=== PATIENT | female | born 1970 | race American Indian/Alaskan Native ===

== ENCOUNTER 2017-05-07 19:42 | Emergency (ER) | payer OTHER ==
[2017-05-07 19:43] VITALS: BMI 24.4
[2017-05-07 19:54] VITALS: O2SAT 100
--- NOTE | 2017-05-07 20:40 | ED PDOC ---
Arrival/HPI - General Chief Complaint: Headache Time Seen by Provider: 05/07/17 20:32 Historian: Patient - History of Present Illness Narrative History of Present Illness (Text): 05/07/17 20:32 This 47 yo female with pmh migraines, presents to this ED c/o posterior EMANUEL, and neck pain x 2 weeks. Patient stated her symptoms has been intermittent, however , symptoms worsen last 2-3 days. Patient noted she has had a negative CT of head, and a negative MRI of brain within last month. Denies fever, diplopia, dizziness, sob, cp, abdominal pain, urinary symptoms, vaginal discharge, vaginal bleeding, weakness, paresthesias, back pain, or abnormal gait. Time/Duration: Other (see hpi) Context: Home Past Medical History - Provider Review Nursing Documentation Reviewed: Yes - Infectious Disease Hx of Infectious Diseases: None - Tetanus Immunization Tetanus Immunization: Unknown - Past Medical History Past Medical History: No Previous - Cardiac Hx Cardiac Disorders: No - Pulmonary Hx Respiratory Disorders: Yes Hx Asthma: Yes - Neurological Hx Neurological Disorder: Yes Hx Migraine: Yes - HEENT Hx HEENT Disorder: No - Renal Hx Renal Disorder: No - Endocrine/Metabolic Hx Endocrine Disorders: No - Hematological/Oncological Hx Blood Disorders: No - Integumentary Hx Dermatological Disorder: No - Musculoskeletal/Rheumatological Hx Musculoskeletal Disorders: No - Gastrointestinal Hx Gastrointestinal Disorders: Yes Hx Gastroesophageal Reflux: Yes - Genitourinary/Gynecological Hx Genitourinary Disorders: No - Psychiatric Hx Psychophysiologic Disorder: No Hx Anxiety: Yes Hx Depression: No Hx Emotional Abuse: No Hx Physical Abuse: No Hx Substance Use: No - Past Surgical History Past Surgical History: No Previous - Surgical History Hx Section: Yes - Anesthesia Hx Anesthesia: Yes Hx Anesthesia Reactions: No - Suicidal Assessment Feels Threatened In Home Enviroment: No Family/Social History - Physician Review Nursing Documentation Reviewed: Yes Family/Social History: Other (non-contributory) Smoking Status: Never Smoked Hx Alcohol Use: No Hx Substance Use: No Hx Substance Use Treatment: No Allergies/Home Meds Allergies/Adverse Reactions: Allergies No Known Allergies Allergy (Verified 10/29/16 19:35) Home Medications: Home Meds Medication Instructions Recorded Confirmed Acetaminophen/Butalbital/Caf 1 tab PO PRN PRN 05/07/17 05/07/17 [Fioricet] Topiramate [Topamax] 50 mg PO PRN PRN 05/07/17 05/07/17 Review of Systems - Review of Systems Constitutional: Normal. absent: Fatigue, Weight Change, Fevers, Night Sweats Eyes: Normal ENT: Normal. absent: Sore Throat, Rhinorrhea Respiratory: Normal. absent: SOB, Cough, Sputum, Wheezing Cardiovascular: Normal. absent: Chest Pain, Palpitations, Edema Gastrointestinal: Normal. absent: Abdominal Pain, Nausea, Vomiting Genitourinary Female: Normal. absent: Dysuria, Frequency, Hematuria, Vaginal Bleeding, Vaginal Discharge Musculoskeletal: Neck Pain. absent: Arthralgias, Back Pain, Joint Swelling, Myalgias Skin: Normal. absent: Rash Neurological: Headache. absent: Dizziness, Focal Weakness, Gait Changes, Speech Changes, Facial Droop, Disequilibrium, Seizure Endocrine: Normal Hemo/Lymphatic: Normal Psychiatric: Normal Physical Exam Vital Signs Temp Pulse Resp BP Pulse Ox 05/07/17 19:53 97.5 F L 70 19 161/84 H 100 Temperature: Afebrile Blood Pressure: Normal Pulse: Regular Respiratory Rate: Normal Appearance: Positive for: Well-Appearing, Non-Toxic, Comfortable Pain Distress: None Mental Status: Positive for: Alert and Oriented X 3 - Systems Exam Head: Present: Atraumatic, Normocephalic Pupils: Present: PERRL Extroacular Muscles: Present: EOMI Conjunctiva: Present: Normal Mouth: Present: Moist Mucous Membranes Neck: Present: Normal Range of Motion Respiratory/Chest: Present: Clear to Auscultation, Good Air Exchange. No: Respiratory Distress, Accessory Muscle Use Cardiovascular: Present: Regular Rate and Rhythm, Normal S1, S2. No: Murmurs Abdomen: Present: Normal Bowel Sounds. No: Tenderness, Distention, Peritoneal Signs Back: Present: Normal Inspection Upper Extremity: Present: Normal Inspection, Normal ROM, NORMAL PULSES, Neurovascularly Intact, Capillary Refill < 2s. No: Cyanosis, Edema Lower Extremity: Present: Normal Inspection, NORMAL PULSES, Normal ROM, Neurovascularly Intact, Capillary Refill < 2 s. No: Edema, CALF TENDERNESS Neurological: Present: GCS=15, CN II-XII Intact, Speech Normal, Motor Func Grossly Intact, Normal Sensory Function, Normal Cerebellar Funct, Gait Normal, Memory Normal, Other (No neuro focal deficts. Normal gait.) Skin: Present: Warm, Dry, Normal Color. No: Rashes Psychiatric: Present: Alert, Oriented x 3, Normal Insight, Normal Concentration Medical Decision Making ED Course and Treatment: 05/07/17 20:40 Patient does not want to have Reglan, since last time she had a "bad ' side effect. 05/07/17 22:13 Re-evaluation. Patient feels better. Discussed results and plan with patient who expresses understanding. All questions answered and there is agreement with the plan to discharge home with instructions. Patient stable for discharge. Return if symptoms persist or worsen. Re-evaluation Time: 22:13 Reassessment Condition: Re-examined, Improved - Medication Orders Current Medication Orders: Discontinued Medications Diazepam (Valium) 5 mg PO ONCE ONE PRN Reason: Protocol Stop: 05/07/17 20:40 Last Admin: 05/07/17 20:57 Dose: Not Given Non-Admin Reason: Patient Refused Sodium Chloride (Sodium Chloride 0.9%) 1,000 mls @ 999 mls/hr IV .Q1H1M STA Stop: 05/07/17 21:37 Last Admin: 05/07/17 21:07 Dose: 999 mls/hr Ketorolac Tromethamine (Toradol) 15 mg IVP STAT STA Stop: 05/07/17 20:40 Last Admin: 05/07/17 21:11 Dose: 15 mg Ondansetron HCl (Zofran Inj) 4 mg IVP STAT STA Stop: 05/07/17 20:40 Last Admin: 05/07/17 21:11 Dose: 4 mg Disposition/Present on Arrival - Present on Arrival Any Indicators Present on Arrival: No History of DVT/PE: No History of Uncontrolled Diabetes: No Urinary Catheter: No History of Decub. Ulcer: No History Surgical Site Infection Following: None - Disposition Have Diagnosis and Disposition been Completed?: Yes Diagnosis: Headache Disposition: HOME/ ROUTINE Disposition Time: 22:14 Patient Plan: Discharge Condition: GOOD Discharge Instructions (ExitCare): General Headache (ED) Additional Instructions: Call private doctor for follow up visit in 1-2 days. You may need to start your home medication for headaches as instructed by your neurologist. Take medication as instructed with food. return to emergency if symptoms worsen. Prescriptions: Diazepam [Valium] 2 mg PO DAILY PRN #7 tablet PRN Reason: Muscle Spasm Famotidine [Pepcid] 40 mg PO DAILY #10 tablet Naproxen 500 mg PO BID PRN #14 tab PRN Reason: Pain, Severe (8-10) Referrals: Sari Davies MD [Primary Care Provider] - Follow up with primary Forms: [employer] (Nepali)
[2017-05-07] MEDS: Sodium Chloride 0.9% 1,000 ML IV STA (21:07)
[2017-05-07 22:41] VITALS: BP 134/94; PULSE 75; RESP 18; TEMP 98
== END 2017-05-07 23:05 | disposition home or self-care (01) ==
LOC: ED 19:42
DX: R51 Headache (principal)
CPT/HCPCS: 96361; 96374; 96375; 99285; J1885; J2405; J7040

== ENCOUNTER 2017-06-21 10:32 | Emergency (ER) | payer OTHER ==
[2017-06-21 10:48] VITALS: O2SAT 100
[2017-06-21 10:58] VITALS: BMI 24.3
--- NOTE | 2017-06-21 11:10 | ED PDOC ---
Arrival/HPI - General Historian: Patient <Vishal Gray - Last Filed: 06/21/17 13:50> - History of Present Illness Time/Duration: 4-6 hours Symptom Course: Resolved Quality: Aching Severity Level: 7 <Mekhi Means - Last Filed: 06/21/17 13:59> - General Chief Complaint: Headache Time Seen by Provider: 06/21/17 10:35 - History of Present Illness Narrative History of Present Illness (Text): 47 year female with no significant past medical history who has had 2 months of a headache who now presents to [facility] via EMS for blurred vision and dizziness. Her symptoms began when she woke up today at 7:00 am and resolved in 30-45 minutes. She denies any visual loss, motor or sensory loss, convulsions, or change or worsening of her typical headache. She states her headaches are posterior in nature, constant, characterized as aching, that generally start from the occiput and radiate to the posterior neck, and have been refractory to Topamax, though the dosage was recently increased. Important to note, she has recently started taking Flexeril 10 mg BID since last and has been experiencing menopausal symptoms, including, but not limited to hot flashes, difficulty sleeping, and dysphoria. She states her last period was in February and the one before that was in September of this year. She had an MRI in December that showed no abnormalities and has seen a neurologist in the past week. 06/21/17 11:16 (Mekhi Means) Past Medical History - Provider Review Nursing Documentation Reviewed: Yes - Infectious Disease Hx of Infectious Diseases: None - Tetanus Immunization Tetanus Immunization: Unknown - Reproductive Menopause: Yes (patient states in menopause lmp 03/2017) - Past Medical History Past Medical History: No Previous - Cardiac Hx Cardiac Disorders: No - Pulmonary Hx Respiratory Disorders: Yes Hx Asthma: Yes ("seasonal") - Neurological Hx Neurological Disorder: Yes Hx Migraine: Yes - HEENT Hx HEENT Disorder: No - Renal Hx Renal Disorder: No - Endocrine/Metabolic Hx Endocrine Disorders: No - Hematological/Oncological Hx Blood Disorders: No - Integumentary Hx Dermatological Disorder: No - Musculoskeletal/Rheumatological Hx Musculoskeletal Disorders: No - Gastrointestinal Hx Gastrointestinal Disorders: Yes Hx Gastroesophageal Reflux: Yes - Genitourinary/Gynecological Hx Genitourinary Disorders: No - Psychiatric Hx Psychophysiologic Disorder: Yes Hx Anxiety: Yes Hx Depression: No Hx Emotional Abuse: No Hx Physical Abuse: No Hx Substance Use: No - Past Surgical History Past Surgical History: No Previous - Surgical History Hx Section: Yes (2008) - Anesthesia Hx Anesthesia: Yes Hx Anesthesia Reactions: No - Suicidal Assessment Feels Threatened In Home Enviroment: No <Miguelangel,Mekhi - Last Filed: 06/21/17 13:59> Family/Social History - Physician Review Nursing Documentation Reviewed: Yes Family/Social History: No Known Family HX Smoking Status: Never Smoked Hx Alcohol Use: Yes Frequency of alcohol use: Socially Hx Substance Use: No Hx Substance Use Treatment: No <Mekhi Means - Last Filed: 06/21/17 13:59> Allergies/Home Meds <Vishal Gray - Last Filed: 06/21/17 13:50> <MiguelangelMekhi mckinnon - Last Filed: 06/21/17 13:59> Allergies/Adverse Reactions: Allergies No Known Allergies Allergy (Verified 10/29/16 19:35) Home Medications: Home Meds Medication Instructions Recorded Confirmed Topiramate [Topamax] 50 mg PO PRN PRN 05/07/17 06/21/17 Cyclobenzaprine [Flexeril] 10 mg PO BID 06/21/17 06/21/17 Review of Systems - Review of Systems Constitutional: Fatigue, Other (hot flashes). absent: Fevers Eyes: Vision Changes. absent: Photophobia, Eye Pain ENT: absent: Hearing Changes, Tinnitus, Sinus Congestion Respiratory: absent: SOB, Cough, Wheezing Cardiovascular: absent: Chest Pain, Palpitations Gastrointestinal: absent: Abdominal Pain, Nausea, Vomiting Musculoskeletal: Neck Pain Neurological: Headache, Dizziness, Disequilibrium. absent: Focal Weakness, Gait Changes Hemo/Lymphatic: absent: Easy Bleeding, Easy Bruising Psychiatric: absent: Anxiety, Depression <Mekhi Means - Last Filed: 06/21/17 13:59> Physical Exam Vital Signs Reviewed: Yes Temperature: Afebrile Blood Pressure: Hypertensive Pulse: Regular Respiratory Rate: Normal Appearance: Positive for: Non-Toxic, Comfortable Pain Distress: Mild Mental Status: Positive for: Alert and Oriented X 3 - Systems Exam Head: Present: Atraumatic, Normocephalic Pupils: Present: PERRL Extroacular Muscles: Present: EOMI Conjunctiva: Present: Normal Mouth: Present: Moist Mucous Membranes Pharnyx: Present: Normal. No: ERYTHEMA, EXUDATE Neck: Present: Normal Range of Motion Respiratory/Chest: Present: Clear to Auscultation, Good Air Exchange. No: Respiratory Distress Cardiovascular: Present: Regular Rate and Rhythm, Normal S1, S2 Abdomen: Present: Normal Bowel Sounds. No: Tenderness, Distention Back: Present: Normal Inspection Upper Extremity: Present: Normal Inspection. No: Cyanosis, Edema Lower Extremity: Present: Normal Inspection. No: Edema Neurological: Present: CN II-XII Intact, Speech Normal, Motor Func Grossly Intact, Normal Sensory Function, Normal Cerebellar Funct, Gait Normal, Other ( negative Romberg and negative Dionicio-Khan [place] maneuver) Skin: Present: Warm, Dry, Normal Color Psychiatric: Present: Alert, Oriented x 3, Depressed Mood <Mekhi Means - Last Filed: 06/21/17 13:59> Vital Signs Temp Pulse Resp BP Pulse Ox 06/21/17 13:48 88 17 137/80 100 06/21/17 13:00 85 18 138/71 100 06/21/17 11:18 98.9 F 06/21/17 10:39 99.1 F 92 H 18 143/75 100 06/21/17 10:32 99.1 F 95 H 17 141/75 100 Medical Decision Making - Lab Interpretations I have reviewed the lab results: Yes <Vishal Gray - Last Filed: 06/21/17 13:50> - EKG Interpretation Interpreted by ED Physician: Yes (NSR) Type: 12 lead EKG <Mekhi Means - Last Filed: 06/21/17 13:59> ED Course and Treatment: 06/21/17 13:53 In agreement with resident note, which includes further HPI details. Patient was seen and evaluated with resident, came up with plan and treatment together. 47 year old female presents complaining of headaches for the past two months associated with blurred vision and dizziness. (Vishal Gray) EKG shows normal sinus rhythm. 06/21/17 11:44 CT head without contrast shows no abnormalities. CBC shows WBC of 4.1. CMP and Coagulation panel non-revealing 06/21/17 12:48 Patient was alert, oriented, and exhibiting normal mentation and signed out AMA after being informed of the risks, including sudden , of leaving against medical advice. 06/21/17 13:43 (Mekhi Means) - Lab Interpretations Lab Results: 06/21/17 11:30 06/21/17 11:30 Lab Results 06/21/17 11:30: Sodium 143, Potassium 4.1, Chloride 109 H, Carbon Dioxide 23, Anion Gap 15, BUN 12, Creatinine 0.8, Est GFR ( Amer) > 60, Est GFR (Non- Af Amer) > 60, Random Glucose 98, Calcium 9.1, Total Bilirubin 0.6, AST 30, ALT 25, Alkaline Phosphatase 77, Total Protein 7.8, Albumin 4.5, Globulin 3.3, Albumin/Globulin Ratio 1.4 06/21/17 11:30: PT 11.4, INR 1.06, APTT 25.4 06/21/17 11:30: WBC 4.1 L D, RBC 4.09, Hgb 12.8, Hct 37.1, MCV 90.7, MCH 31.3, MCHC 34.5, RDW 12.5, Plt Count 233, MPV 10.8, Gran % 68.7 H, Lymph % (Auto) 24.5 , [place] % (Auto) 5.6, Eos % (Auto) 0.5 L, Baso % (Auto) 0.7, Gran # 2.80, Lymph # 1.0 L, [place] # 0.2, Eos # 0.0, Baso # 0.03 06/21/17 11:17: POC Glucose (mg/dL) 89 - RAD Interpretation Radiology Orders: 06/21/17 11:17 HEAD W/O CONTRAST [CT] Stat - Medication Orders Current Medication Orders: Discontinued Medications Diphenhydramine HCl (Benadryl) 25 mg IVP STAT STA Stop: 06/21/17 11:20 Last Admin: 06/21/17 12:53 Dose: Not Given Non-Admin Reason: Patient Refused Ketorolac Tromethamine (Toradol) 30 mg IVP STAT STA Stop: 06/21/17 12:02 Last Admin: 06/21/17 12:18 Dose: 30 mg MAR Pain Assessment Document 06/21/17 12:18 SF (Rec: 06/21/17 12:18 SF [id number]) Pain Reassessment Is this a pain reassessment? Yes Sleep Is patient sleeping during reassessment? No Presence of Pain Presence of Pain Yes IVP Administration Document 06/21/17 12:18 SF (Rec: 06/21/17 12:18 SF [id number]) Charges for Administration # of IVP Administrations 1 Re-Assess: SUZI Pain Assessment Document 06/21/17 13:18 SF (Rec: 06/21/17 13:45 SF [place] [id number]) Pain Reassessment Is this a pain reassessment? Yes Sleep Is patient sleeping during reassessment? No Presence of Pain Presence of Pain Yes Metoclopramide HCl (Reglan) 10 mg IVP STAT STA Stop: 06/21/17 11:20 Last Admin: 06/21/17 12:52 Dose: Not Given Non-Admin Reason: Patient Refused - Scribe Statement The provider has reviewed the documentation as recorded by the Scribe <Vishal Gray - Last Filed: 06/21/17 13:50> <Mekhi Means - Last Filed: 06/21/17 13:59> - Scribe Statement James Chapman All medical record entries made by the Scribe were at my direction and personally dictated by me. I have reviewed the chart and agree that the record accurately reflects my personal performance of the history, physical exam, medical decision making, and the department course for this patient. I have also personally directed, reviewed, and agree with the discharge instructions and disposition. (Vishal Gray) Disposition/Present on Arrival <Vishal Gray - Last Filed: 06/21/17 13:50> - Present on Arrival Any Indicators Present on Arrival: No History of DVT/PE: No History of Uncontrolled Diabetes: No Urinary Catheter: No History of Decub. Ulcer: No History Surgical Site Infection Following: None - Disposition Have Diagnosis and Disposition been Completed?: Yes Disposition Time: 13:47 Patient Plan: Other <Mekhi Means - Last Filed: 06/21/17 13:59> - Disposition Diagnosis: Headache Disposition: AGAINST MEDICAL ADVICE Patient Problems: Current Active Problems Problem Status Onset Headache Acute Condition: UNKNOWN Forms: [employer] (Turkish)
[2017-06-21 11:19] VITALS: TEMP 98.9
[2017-06-21] MEDS ORDERED: DiphenhydrAMINE 50 mg/ml Inj IVP STA (11:19)
[2017-06-21 12:08] LABS: BASO # 0.03 K/mm3 (0.0-2.0); BASO % 0.7 % (0.0-3.0); EOS % 0.5 % (1.5-5.0); GRAN # 2.8 (1.4-6.5); GRAN % 68.7 % (50.0-68.0); HEMATOCRIT 37.1 % (36.0-48.0); LYMPH % 24.5 % (22.0-35.0); MEAN CELL VOLUME 90.7 fl (80.0-105.0); MEAN CORPUSCULAR HEMOGLOBIN 31.3 pg (25.0-35.0); MEAN CORPUSCULAR HGB CONC 34.5 g/dl (31.0-37.0); MEAN PLATELET VOLUME 10.8 fl (7.0-11.0); MONO # 0.2 (0.1-0.6); MONO % 5.6 % (1.0-6.0); RED CELL DISTRIBUTION WIDTH 12.5 % (11.5-14.5); WHITE BLOOD COUNT 4.1 10^3/ul (4.5-11.0)
[2017-06-21 12:14] LABS: ALB/GLOB RATIO 1.4 (1.1-1.8); ALKALINE PHOSPHATASE 77 U/L (38-126); ALT/SGPT 25 U/L (7-56); AST/SGOT 30 U/L (14-36); BILIRUBIN,TOTAL 0.6 mg/dL (0.2-1.3); BLOOD UREA NITROGEN 12 mg/dL (7-21); CALCIUM 9.1 mg/dL (8.4-10.5); CARBON DIOXIDE 23 mmol/L (21-33); CHLORIDE 109 mmol/L (98-107); GFR AFRICAN-AMERICAN > 60; GLUCOSE,RANDOM 98 mg/dL (70-110); INR 1.06 (0.93-1.08); PARTIAL THROMBOPLASTIN TIME 25.4 Seconds (23.7-30.8); POTASSIUM 4.1 mmol/L (3.6-5.0); SODIUM 143 mmol/L (132-148); TOTAL PROTEIN 7.8 g/dL (5.8-8.3)
--- NOTE | 2017-06-21 12:20 | CT ---
PROCEDURE: CT HEAD WITHOUT CONTRAST. HISTORY: fernandez COMPARISON: Comparison made with CT scan brain 09/06/2016 TECHNIQUE: Axial computed tomography images were obtained through the head/brain without intravenous contrast. Radiation dose: Total exam DLP = 726.57 mGy-cm. This CT exam was performed using one or more of the following dose reduction techniques: Automated exposure control, adjustment of the mA and/or kV according to patient size, and/or use of iterative reconstruction technique. FINDINGS: HEMORRHAGE: No acute parenchymal, subarachnoid nor extra-axial hemorrhage. BRAIN: No evidence of large acute infarct. No obvious parenchymal nor extra-axial masses or collections seen on this noncontrast study. Mild age-appropriate volume loss. VENTRICLES: Unremarkable. No hydrocephalus. CALVARIUM: Unremarkable. PARANASAL SINUSES: Minor mucosal thickening seen within a few ethmoid air cells MASTOID AIR CELLS: Unremarkable as visualized. No inflammatory changes. OTHER FINDINGS: None. IMPRESSION: No acute intracranial hemorrhage.
[2017-06-21 13:48] VITALS: BP 137/80; PULSE 88; RESP 17
[2017-06-21 13:58] LABS: URINE BILIRUBIN NEGATIVE (NEGATIVE); URINE BLOOD TRACE-INTACT (NEGATIVE); URINE GLUCOSE (UA) NEGATIVE (NEGATIVE); URINE KETONE NEGATIVE (NEGATIVE); URINE LEUKOCYTE ESTERASE TRACE Leu/uL (NEGATIVE); URINE PROTEIN NEGATIVE mg/dL (<30 mg/dL); URINE UROBILINOGEN 0.2 E.U./dL (<1 E.U./dL)
[2017-06-21 14:01] LABS: URINE APPEARANCE CLEAR (CLEAR); URINE COLOR YELLOW (YELLOW)
[2017-06-21 14:04] LABS: URINE AMORPHOUS SEDIMENT FEW; URINE BACTERIA MANY (NEG)
--- NOTE | 2017-06-21 14:31 | CARD ---
APPROVED REPORT EKG Measurement Heart [id number] <Conclusion> Normal sinus rhythm Normal ECG
== END 2017-06-21 13:45 | disposition left against medical advice (07) ==
LOC: ED 10:32
DX: R51 Headache (principal)
CPT/HCPCS: 70450; 80053; 81001; 82948; 84703; 85025; 85610; 85730; 93005; 96374; 99285; J1885

== ENCOUNTER 2017-06-26 20:18 | Emergency (ER) | payer OTHER ==
[2017-06-26 20:18] VITALS: BMI 24.3
[2017-06-26 20:40] VITALS: PULSE 95; RESP 18; TEMP 98.5
--- NOTE | 2017-06-26 20:46 | ED PDOC ---
Arrival/HPI - General Chief Complaint: Shortness Of Breath Time Seen by Provider: 06/26/17 20:20 - History of Present Illness Narrative History of Present Illness (Text): 47 year old female with a past medical history of asthma (seasonal in nature) who presents with acute onset rhinorrhea, coryza, congestion, and shortness of breath following allergy testing today. She reports not having an albuterol inhaler at home and never being hospitalized for an asthma attack. She denies a productive cough, fever, chills, or chest pain. 06/26/17 20:39 Past Medical History - Provider Review Nursing Documentation Reviewed: Yes - Infectious Disease Hx of Infectious Diseases: None - Tetanus Immunization Tetanus Immunization: Unknown - Past Medical History Past Medical History: No Previous - Cardiac Hx Cardiac Disorders: No - Pulmonary Hx Respiratory Disorders: Yes Hx Asthma: Yes ("seasonal") - Neurological Hx Neurological Disorder: Yes Hx Migraine: Yes - HEENT Hx HEENT Disorder: No - Renal Hx Renal Disorder: No - Endocrine/Metabolic Hx Endocrine Disorders: No - Hematological/Oncological Hx Blood Disorders: No - Integumentary Hx Dermatological Disorder: No - Musculoskeletal/Rheumatological Hx Musculoskeletal Disorders: No - Gastrointestinal Hx Gastrointestinal Disorders: Yes Hx Gastroesophageal Reflux: Yes - Genitourinary/Gynecological Hx Genitourinary Disorders: No - Psychiatric Hx Psychophysiologic Disorder: Yes Hx Anxiety: Yes Hx Depression: No Hx Emotional Abuse: No Hx Physical Abuse: No Hx Substance Use: No - Past Surgical History Past Surgical History: No Previous - Surgical History Hx Section: Yes (2008) - Anesthesia Hx Anesthesia: Yes Hx Anesthesia Reactions: No Hx Malignant Hyperthermia: No - Suicidal Assessment Feels Threatened In Home Enviroment: No Family/Social History Family/Social History: No Known Family HX Smoking Status: Never Smoked Hx Alcohol Use: Yes Frequency of alcohol use: Socially Hx Substance Use: No Hx Substance Use Treatment: No Allergies/Home Meds Allergies/Adverse Reactions: Allergies No Known Allergies Allergy (Verified 10/29/16 19:35) Home Medications: Home Meds Medication Instructions Recorded Confirmed Topiramate [Topamax] 50 mg PO PRN PRN 05/07/17 06/21/17 Cyclobenzaprine [Flexeril] 10 mg PO BID 06/21/17 06/21/17 Review of Systems - Review of Systems Constitutional: absent: Fatigue, Weight Change, Fevers Eyes: absent: Vision Changes, Photophobia, Eye Pain ENT: Rhinorrhea, Sinus Congestion Respiratory: SOB, Cough (dry), Wheezing (mild). absent: Sputum Cardiovascular: absent: Chest Pain, Palpitations, Edema Gastrointestinal: Normal. absent: Nausea, Vomiting Genitourinary Female: Normal. absent: Dysuria, Frequency, Hematuria Musculoskeletal: Normal. absent: Arthralgias, Back Pain, Neck Pain Skin: absent: Rash, Pruritis, Skin Lesions Neurological: Normal. absent: Headache, Dizziness, Focal Weakness Endocrine: absent: Diaphoresis, Polyuria Hemo/Lymphatic: absent: Easy Bleeding, Easy Bruising Psychiatric: absent: Anxiety, Depression Physical Exam Vital Signs Temp Pulse Resp Pulse Ox 06/26/17 21:18 18 99 06/26/17 20:18 98.5 F 95 H 18 100 Temperature: Afebrile Blood Pressure: Normal Pulse: Regular Respiratory Rate: Normal Appearance: Positive for: Well-Appearing, Non-Toxic Pain Distress: None Mental Status: Positive for: Alert and Oriented X 3 - Systems Exam Head: Present: Atraumatic, Normocephalic Pupils: Present: PERRL Extroacular Muscles: Present: EOMI Conjunctiva: Present: Normal Mouth: Present: Moist Mucous Membranes Pharnyx: Present: Normal. No: ERYTHEMA, EXUDATE Neck: Present: Normal Range of Motion, Trachea Midline. No: Lymphadenopathy Respiratory/Chest: Present: Good Air Exchange, Wheezes (mild). No: Respiratory Distress, Accessory Muscle Use, Retracting Cardiovascular: Present: Regular Rate and Rhythm, Normal S1, S2 Abdomen: Present: Normal Bowel Sounds. No: Tenderness, Distention, Rebound Back: Present: Normal Inspection. No: CVA Tenderness, Midline Tenderness Upper Extremity: Present: Normal Inspection. No: Cyanosis, Edema Lower Extremity: Present: Normal Inspection. No: Edema, CALF TENDERNESS Neurological: Present: CN II-XII Intact, Speech Normal, Motor Func Grossly Intact Skin: Present: Warm, Dry, Normal Color Lymphatic: No: Cervical Adenopathy Psychiatric: Present: Alert, Oriented x 3, Normal Insight, Normal Concentration Medical Decision Making ED Course and Treatment: EKG shows sinus tachycardia with possible left atrial enlargement. 06/26/17 21:04 Patient has developed hives/urticaria in the neck, arm and back. 06/26/17 21:27 Patient agrees to be discharged. 06/26/17 21:50 - EKG Interpretation Interpreted by ED Physician: Yes Type: 12 lead EKG - Medication Orders Current Medication Orders: Discontinued Medications Albuterol/Ipratropium (Duoneb 3 Mg/0.5 Mg (3 Ml) Ud) 3 ml IH Q15M EVITA Stop: 06/26/17 21:31 Last Admin: 06/26/17 21:24 Dose: 3 ml Diphenhydramine HCl (Benadryl) 25 mg PO STAT STA Stop: 06/26/17 21:05 Last Admin: 06/26/17 21:24 Dose: 25 mg Famotidine (Pepcid) 40 mg PO STAT STA Stop: 06/26/17 21:29 Prednisone (Prednisone Tab) 40 mg PO STAT STA Stop: 06/26/17 20:48 Last Admin: 06/26/17 21:00 Dose: 40 mg Disposition/Present on Arrival - Present on Arrival Any Indicators Present on Arrival: No History of DVT/PE: No History of Uncontrolled Diabetes: No Urinary Catheter: No History of Decub. Ulcer: No History Surgical Site Infection Following: None - Disposition Have Diagnosis and Disposition been Completed?: Yes Diagnosis: Allergic reaction Disposition: HOME/ ROUTINE Disposition Time: 21:58 Patient Plan: Discharge Patient Problems: Current Active Problems Problem Status Onset Allergic reaction Acute Condition: FAIR Prescriptions: Albuterol HFA [Ventolin HFA 90 mcg/actuation (8 g)] 2 puff IH [id number] PRN #1 puff PRN Reason: Shortness Of Breath Famotidine 20 mg PO DAILY #10 tablet Methylprednisolone [Medrol Dose Pack (21 tabs)] 4 mg PO DAILY #21 mg Referrals: Sari Davies MD [Primary Care Provider] - Follow up with primary Forms: [employer] (Telugu)
[2017-06-26] MEDS: Albuterol-Ipratrop 3 mg / 0.5 (3 ml) UD IH SCH ×2 (21:00→21:24)
[2017-06-26] MEDS ORDERED: DiphenhydrAMINE 12.5 mg/5 ml LIQ UD (5 ml) PO STA (21:04)
[2017-06-26 21:20] VITALS: O2SAT 99
--- NOTE | 2017-06-27 23:04 | CARD ---
APPROVED REPORT EKG Measurement Heart [id number] <Conclusion> Sinus tachycardia Possible Left atrial enlargement Borderline ECG
== END 2017-06-26 22:09 | disposition home or self-care (01) ==
LOC: ED 20:18
DX: T78.49XA Other allergy, initial encounter (principal); X58.XXXA Exposure to other specified factors, initial encounter